=== PATIENT | female | born 1990 | race Caucasian/White ===

== ENCOUNTER 2022-03-17 06:30 | Inpatient (IN) | payer OTHER, SELFPAY ==
[2022-03-17] VITALS (38 sets, daily range): BP systolic 104–156; BP diastolic 54–84; PULSE 57–89; TEMP 36.1–37.1; O2SAT 79–100; BMI 27.0
[2022-03-17 06:29] LABS: ROM Internal Control Test YES-OK TO RESULT pt. (Internal QC)
[2022-03-17 06:30] LABS: ROM Patient Test POSITIVE (Negative)
--- NOTE | 2022-03-17 06:51 | HP.PCM.OB_ITS ---
HPI - General General Date of Admission: 03/17/22 HPI Narrative TASHA GOULD, is a 31 F who presents at 40w5d for leakage of fluid at 0230 this am. Contractions irregular. No vaginal bleeding. Good movement. uncomplicated. Maternal Data Information RODO Calculator Estimated Delivery Date Method Current WG Current Estimate 03/12/22 Manual 40w 5d PFSH PFSH Home Medications [id number] [] 1 tab PO DAILY 03/17/22 [History Last Taken 03/16/22 08:00] Allergy/AdvReac Type Severity Reaction Status Date / Time chlorhexidine Allergy Rash Verified 03/17/22 06:41 NST FHR Rate Baby A Baseline: 130 Variability:: Moderate Accelerations:: 15 x 15 Decelerations:: None FHR Category:: Category I Uterine Activity:: Irregular, mild ROS Constitutional Constitutional: Reports systems reviewed and no addt'l complaints, except as documented; Denies headache(s) Eyes Eyes: Denies acute decrease in peripheral vision, blurry vision or change in vision ENT HEENT: Reports systems reviewed and no addt'l complaints, except as documented Cardiovascular Cardiovascular: Denies chest pain or dizziness Respiratory/Chest Respiratory/Chest: Denies cough, dyspnea, dyspnea on exertion, shortness of breath at rest or shortness of breath with exertion Gastrointestinal Gastrointestinal: Denies abdominal pain, diarrhea, nausea or vomiting Genitourinary Genitourinary: Denies abdominal discomfort or movement Musculoskeletal Musculoskeletal: Denies limited range of motion Integumentary Integumentary: Reports systems reviewed and no addt'l complaints, except as documented Neurologic Neurologic: Reports systems reviewed and no addt'l complaints, except as documented Psychiatric Psychiatric: Reports systems reviewed and no addt'l complaints, except as documented Endocrine Endocrinology: Reports systems reviewed and no addt'l complaints, except as documented Hematologic/Lymphatic Hematologic/Lymphatic: Reports systems reviewed and no addt'l complaints, except as documented Allergic/Immunologic Allergic/Immunologic: Reports systems reviewed and no addt'l complaints, except as documented Vital Signs Vital Signs Vital Signs: 03/17/22 05:53 Temperature 97.8 F Temperature Source Temporal Pulse Rate 82 Blood Pressure 113/82 H BP Systolic 113 BP Diastolic 82 Pulse Ox 97 Weight Weight: 178 lb Body Mass Index (BMI) 27.0 Physical Exam Const alert and oriented x3 General Appearance: cooperative Orientation / Consciousness: awake, oriented to person, oriented to place and oriented to time Exam Limitations: no limitations HEENT normocephalic Head and Scalp: normal to inspection, normocephalic and atraumatic Face and Sinus: normal facial exam Eyes General Eye: normal appearance of both eyes Neck full ROM Chest Chest: symmetrical chest wall rise Resp normal respiratory effort and normal air movement Auscultation: clear to auscultation bilaterally Cardio regular rate, regular rhythm, S1 normal heart sound, S2 normal heart sound, no murmurs, no rub, no gallops and no clicks GI normal to inspection, nondistended, normoactive bowel sounds and non-tender appearance of the vagina normal Bladder / Kidney Exam: no CVA tenderness Manual OB Exam: estimated gestational size appropriate (approximately 7lb EFW) a nd dilated 1cm per nursing staff and vertex Back/Spine normal ROM Extremity normal to inspection and full ROM Skin no rashes or lesions noted Neuro oriented x3, CN's II-XII intact bilaterally and moves all extremities Sensorium / Orientation: awake, alert and oriented to person Motor Exam: clonus absent Deep Tendon Reflexes: Rt Patellar (L4): 2+ and Lt Patellar (L4): 2+ Labs Labs Labs: No Data to Display RPR negative Rubella Immune HBsAG negative HIV negative Hep C negative AB positive, antibody screen negative GC/CT negative GBS negative Assessment & Plan (1) Post-dates : (2) 40 weeks gestation of : (3) PROM (premature rupture of membranes): PLAN: 1) Admit to Labor and delivery 2) ROM plus positive. Reviewed active vs. expectant management r/b/a and patient would like expectant management at this time. 3) Routine labs 4) Intermittent EFM 5) Saline lock and PO hydration 6) Would like hydrotherapy for pain management. Epidural upon request 7) GBS negative 8) oncoming physician and updated on patient admission and status.
[2022-03-17 07:11] LABS: Absolute Neutrophil Count 8.1 X10^3/uL (2.0-7.7); Basophil# 0.02 X10^3/uL; Basophil% 0.2 % (0-1); Eosinophil# 0.02 X10^3/uL; Eosinophils% 0.2 % (0-5); Hematocrit 35.2 % (37-47); Lymphocyte % 17.4 % (19-41); Mean Corp Hgb Conc 34.1 g/dL (32-36); Mean Corpuscular Hgb 30.7 pg (27.0-32.0); Mean Platelet Vol. 12.3 fl (6.2-12.0); Monocyte# 0.87 X10^3/uL; NRBC Flagged by Analyzer 0 % (0-5); Neutrophil # 8.05 X10^3/uL (2.7-7.7); Neutrophil % 73.8 % (47-70); POSITIVE COUNT YES; RBC Distribution Width CV 11.9 % (11.6-14.6); RBC Distribution Width SD 38.5 fl (35.1-43.9); Red Blood Count 3.91 M/mm3 (4.2-5.4); White Blood Count 10.9 K/mm3 (4.4-11.0)
[2022-03-17] MEDS: Lactated Ringers 1,000 ML 50 ML IV ×2 (07:30→11:44)
[2022-03-17 07:48] LABS: Platelet Estimate ADEQUATE (ADEQ)
[2022-03-17] MEDS: Oxytocin 30 units/NS 500 ml 30 UNITS/500 ML IV.SOLN IV (09:42)
--- NOTE | 2022-03-17 10:12 | PCM.PN.BLA ---
Progress Note Patient seen at bedside. Vaginal exam performed 1./-2, 4 bag noted. That was ruptured and moderate amount of clear fluid was expelled. Pitocin started..
[2022-03-17] MEDS: Lactated Ringers 500 ML 999 ML IV (12:25)
[2022-03-17] MEDS: fentaNYL-bupivacaine (epidural) 100 ML BAG EPIDURAL ×3 (12:54→22:01)
[2022-03-17] MEDS: Lactated Ringers 1,000 ML 200 ML IV ×3 (14:23→21:34)
[2022-03-17] MEDS: Amnioinfusion- 0.9% NS 1,000 ML IV.SOLN. 1000 ML INTRA-UTER (17:03)
[2022-03-17] MEDS: Amnioinfusion- 0.9% NS 1,000 ML IV.SOLN. 150 ML INTRA-UTER (21:31)
[2022-03-18] VITALS (34 sets, daily range): BP systolic 107–137; BP diastolic 63–84; PULSE 59–105; RESP 16–18; TEMP 36.2–37.2; O2SAT 95–98
[2022-03-18] MEDS: Lactated Ringers 1,000 ML 200 ML IV (02:35)
[2022-03-18] MEDS: fentaNYL-bupivacaine (epidural) 100 ML BAG EPIDURAL (03:03)
[2022-03-18] MEDS: Amnioinfusion- 0.9% NS 1,000 ML IV.SOLN. INTRA-UTER (04:16)
--- NOTE | 2022-03-18 06:18 | PCM.PN.BLA ---
Progress Note Patient is pushing but unable to feel any pressure due to dense epidural. Discussed turning the epidural down. head at a +2 station. Continue Pitocin at this time.
[2022-03-18] MEDS: Oxytocin 30 units/NS 500 ml 30 UNITS/500 ML IV.SOLN 334 UNITS IV (07:30)
--- NOTE | 2022-03-18 07:40 | EX.PCM.OBRPT ---
Assessment & Plan (1) Vaginal delivery: (2) Obstetrical laceration, second degree: Maternal Data Information RODO Calculator Estimated Delivery Date Method Current WG Current Estimate 03/12/22 Manual 40w 6d Vaginal Delivery Maternal Presentation Maternal Presentation: Spontaneous Rupture of Membranes Maternal Presentation: early labor with SROM- pitocin started for induction Operative Information Date of Procedure: 03/18/22 Pre-Operative Diagnosis: 40 weeks gestation, SROM Post-Operative Diagnosis: same, live male Surgery / Procedure Performed: Spontaneous Vaginal Delivery Type of Anesthesia: Epidural Drain: Dhillon to straight drain Estimated Blood Loss: 300 Time of Delivery: 07:24 Findings Description of Procedure: Patient progressed to fully dilated. Good maternal pushing efforts delivered the 's head. Gentle downward traction to deliver the anterior shoulder followed by the rest the infant's body. The infant was placed on the mother's chest. Was vigorous at . Delayed cord clamping performed. Pitocin was started placenta delivered spontaneously without difficulty. Placenta was intact. Second-degree vaginal laceration was appreciated. This was repaired with 2-0 Vicryl and 3-0 repeat suture. Excellent hemostasis was appreciated no complications. Presentation: Vertex Amniotic Membrane Rupture Type: Spontaneous Amniotic Fluid Description: Clear Placental Delivery Description: Spontaneous Placenta Disposition: [facility] Specimen(s) Removed: placenta Cord Vessel Description: 3 Vessels Cord Entanglement: None Infant A Gender: Male (1 minute): 8 (5 minute): 9 Delayed Cord Clamping: Yes Post Vaginal Delivery Medications Given After Delivery: IV Pitocin Episiotomy Description: None Laceration: Vaginal Extension/lac and 2nd degree Complication Complications: None
[2022-03-18] MEDS: Naproxen 500 MG Tablet PO ×2 (10:09→18:52)
[2022-03-18] MEDS: Senna/Docusate Sodium 1 Tablet PO (10:09)
[2022-03-18] MEDS: Acetaminophen 500 MG Tablet 1000 MG PO (16:35)
[2022-03-19 00:20] VITALS: BP 123/72; PULSE 78; RESP 16; TEMP 36.7; O2SAT 95
[2022-03-19] MEDS: Acetaminophen 500 MG Tablet 1000 MG PO ×3 (00:25→20:39)
[2022-03-19 03:50] VITALS: BP 112/63; PULSE 64; RESP 16; TEMP 36.4; O2SAT 97
[2022-03-19] MEDS: Naproxen 500 MG Tablet PO ×3 (06:04→23:38)
[2022-03-19 08:05] VITALS: BP 126/83; PULSE 70; RESP 16; TEMP 36.6; O2SAT 96
[2022-03-19] MEDS: Benzocaine/Lanolin/Aloe Vera 1 SPRAY EACH TOPICAL (08:15)
[2022-03-19] MEDS: Senna/Docusate Sodium 1 Tablet PO (08:16)
--- NOTE | 2022-03-19 09:50 | PCM.PN.OB ---
Subjective Subjective Patient seen at bedside. . Ambulating and voiding without difficulty. Lochia decreasing. Desires discharge later today. Objective Data Objective Data Vital Signs: Vital Signs Temp Pulse Resp BP Pulse Ox 97.6 F L 64 16 112/63 97 03/19/22 03:50 03/19/22 03:50 03/19/22 03:50 03/19/22 03:50 03/19/22 03:50 Oxygen Delivery Method Room Air Weight: 178 lb Body Mass Index (BMI) 27.0 Intake & Output: Intake and Output for Last 24 Hours 03/17/22 03/18/22 03/19/22 23:59 23:59 23:59 Intake Total 3718.28 / 3718.28 2491.42 / 2491.42 Output Total 2400 / 2400 2550 / 2550 Balance 1318.28 / 1318.28 -58.58 / -58.58 Lab / Micro Data Result Diagrams: 03/17/22 06:50 Micro: Microbiology 03/17/22 07:00 Nasal Secretion SARS-CoV-2 Antigen (Rapid) - Final ROS Eyes Eyes: Denies blurry vision, change in vision or spots in vision ENT HEENT: Denies dizziness or headache(s) Cardiovascular Cardiovascular: Denies abdominal pain, chest pain or dyspnea Respiratory/Chest Respiratory/Chest: Denies cough, dyspnea, shortness of breath at rest or shortness of breath with exertion Gastrointestinal Gastrointestinal: Denies abdominal pain, diarrhea or vomiting Genitourinary Genitourinary: Denies change in urinary stream, difficulty urinating or dysuria Musculoskeletal Musculoskeletal: Reports none Integumentary Integumentary: Denies rash Neurologic Neurologic: Denies dizziness, headache(s), memory loss or weakness Physical Exam Const alert and no apparent distress General Appearance: cooperative and comfortable Exam Limitations: no limitations HEENT normocephalic Eyes General Eye: normal appearance of both eyes Neck full ROM General: normal visual inspection Chest Chest: symmetrical chest wall rise Resp normal respiratory effort and normal air movement Effort and Inspection: symmetric chest movement Auscultation: clear to auscultation bilaterally Cardio regular rate and regular rhythm GI normal to inspection, nondistended, normoactive bowel sounds Back/Spine normal ROM Extremity full ROM and no calf tenderness General Extremity: normal exam except as noted Skin no rashes or lesions noted Neuro CN's II-XII intact bilaterally Psych mental status grossly normal Assessment & Plan (1) Obstetrical laceration, second degree: (2) Vaginal delivery: (3) Mother currently breast-feeding: PLAN: PPD 1 Routine care support D/C home with follow up in office
--- NOTE | 2022-03-19 09:53 | PCM.DC ---
Discharge Instructions Diet Discharge Diet: No restrictions Activity May resume sexual activity in: 6-8 weeks Weight Bearing Status: Weight bearing as tolerated Dressing / Incision Call your doctor if you observe: Fever of 101 or Higher, Inability to urinate, Using more than 1 pad per hour, Shortness of breath, Chest pain, Calf discomfort and Uncontrolled pain Follow Up Care When: 2 weeks virtual visit/ 6 weeks in office Test Results: Test results from this visit will be discussed in further detail at your follow-up appointment, if applicable. Discharge Plan Admission Admit Date/Time: 03/17/22 06:30 Primary Reason for Your Visit: Labor and delivery Attending Provider: Anahy Cisneros Primary Care Provider: Kena Costa Discharge Orders/Prescriptions Prescriptions: New Dermoplast (with menthol) 20-0.5 % Aerosol 1 spray topical TID PRN PRN (Reason: perineal discomfort) Qty: 0 RF: 0 acetaminophen 500 mg Tablet 1,000 mg PO Q6H PRN PRN (Reason: Pain 1-10 Or Fever) Qty: 0 RF: 0 naproxen 500 mg Tablet 500 mg PO Q8H PRN PRN (Reason: Pain Score 1-3) Qty: 0 RF: 0 No Action 1 mg Tablet 1 tab PO DAILY RF: 0 Referrals / Follow Up: Kena Costa MD [Primary Care Provider] - Disposition Disposition (needs filled in before D/C Order can be placed): Home, Self Care
[2022-03-19 15:39] VITALS: BP 117/77; PULSE 66; RESP 16; TEMP 36.7; O2SAT 97
[2022-03-19 20:05] VITALS: BP 123/70; PULSE 72; RESP 18; TEMP 36.7; O2SAT 99
[2022-03-20 03:06] VITALS: BP 114/70; PULSE 72; RESP 16; TEMP 37.2; O2SAT 96
[2022-03-20] MEDS: Acetaminophen 500 MG Tablet 1000 MG PO (03:17)
--- NOTE | 2022-03-20 08:41 | PCM.PN.OB ---
Subjective Subjective Patient seen at bedside. Sitting in rocking chair . Decided to stay last night and go home today. Ambulating and voiding without difficulty. Lochia decreased. Objective Data Objective Data Vital Signs: Vital Signs Temp Pulse Resp BP Pulse Ox 99.0 F 72 16 114/70 96 03/20/22 03:06 03/20/22 03:06 03/20/22 03:06 03/20/22 03:06 03/20/22 03:06 Oxygen Delivery Method Room Air Weight: 178 lb Body Mass Index (BMI) 27.0 Intake & Output: Intake and Output for Last 24 Hours 03/18/22 03/19/22 03/20/22 23:59 23:59 23:59 Intake Total 2491.42 / 2491.42 Output Total 2550 / 2550 Balance -58.58 / -58.58 Lab / Micro Data Result Diagrams: 03/17/22 06:50 Micro: Microbiology 03/17/22 07:00 Nasal Secretion SARS-CoV-2 Antigen (Rapid) - Final ROS Eyes Eyes: Denies blurry vision, change in vision or spots in vision ENT HEENT: Denies dizziness or headache(s) Cardiovascular Cardiovascular: Denies abdominal pain, chest pain or dyspnea Respiratory/Chest Respiratory/Chest: Denies cough, dyspnea, shortness of breath at rest or shortness of breath with exertion Gastrointestinal Gastrointestinal: Denies abdominal pain, diarrhea or vomiting Genitourinary Genitourinary: Denies change in urinary stream, difficulty urinating or dysuria Musculoskeletal Musculoskeletal: Reports none Integumentary Integumentary: Denies rash Neurologic Neurologic: Denies dizziness, headache(s), memory loss or weakness Physical Exam Const alert and no apparent distress General Appearance: cooperative and comfortable Exam Limitations: no limitations HEENT normocephalic Eyes General Eye: normal appearance of both eyes Neck full ROM General: normal visual inspection Chest Chest: symmetrical chest wall rise Resp normal respiratory effort and normal air movement Effort and Inspection: symmetric chest movement Auscultation: clear to auscultation bilaterally Cardio regular rate and regular rhythm GI normal to inspection, nondistended, normoactive bowel sounds Back/Spine normal ROM Extremity full ROM and no calf tenderness General Extremity: normal exam except as noted Skin no rashes or lesions noted Neuro CN's II-XII intact bilaterally Psych mental status grossly normal Assessment & Plan (1) Obstetrical laceration, second degree: (2) Mother currently breast-feeding: (3) Vaginal delivery: PLAN: PPD 2 Routine care support D/C home with follow up in office
[2022-03-20 09:15] VITALS: BP 112/66; PULSE 80; RESP 16; TEMP 36.7; O2SAT 96
[2022-03-20] MEDS: Naproxen 500 MG Tablet PO (09:57)
[2022-03-20 14:00] VITALS: BP 126/78; RESP 16; TEMP 37.1; O2SAT 98
== END 2022-03-20 14:17 | disposition home or self-care (01) | DRG 807 ==
LOC: WPOUT 06:36 → WP 06:36
PROVIDERS: Advanced Practice Midwife; Admitting Provider Obstetrics & Gynecology; PCP Internal Medicine; Visit Provider Obstetrics & Gynecology
DX: O48.0 Post-term pregnancy (principal); Z37.0 Single live birth; O42.92 Full-term premature rupture of membranes, unspecified as to length of time between rupture and onset of labor; O70.1 Second degree perineal laceration during delivery; Z3A.40 40 weeks gestation of pregnancy
CPT/HCPCS: 59025; 59050; 84112; 85025; 86850; 86900; 86901; 87811; 99218; J7030; J7120; G0378

== ENCOUNTER → 2022-12-23 | Outpatient (CLI) | payer OTHER, SELFPAY ==
[2022-12-23 15:19] LABS: Absolute Lymphocyte Count 1.13 X10^3/uL (0.83-4.51); Absolute Neutrophil Count 6.5 X10^3/uL (2.0-7.7); Basophil# 0.02 X10^3/uL; Basophil% 0.2 % (0-1); Eosinophil# 0.03 X10^3/uL; Eosinophils% 0.4 % (0-5); Hematocrit 38.9 % (37-47); Hemoglobin 12.9 g/dL (12.0-15.0); Lymphocyte # 1.13 X10^3/ul (0.83-4.51); Lymphocyte % 13.3 % (19-41); Mean Corp Hgb Conc 33.2 g/dL (32-36); Mean Corpuscular Hgb 29.9 pg (27.0-32.0); Mean Platelet Vol. 10.4 fl (6.2-12.0); Monocyte# 0.77 X10^3/uL; Monocyte% 9.1 % (0-10); NRBC Flagged by Analyzer 0 % (0-5); Neutrophil # 6.51 X10^3/uL (2.7-7.7); Neutrophil % 76.6 % (47-70); Platelet Count 355 K/mm3 (150-450); RBC Distribution Width CV 11.8 % (11.6-14.6); RBC Distribution Width SD 38.5 fl (35.1-43.9); Red Blood Count 4.32 M/mm3 (4.2-5.4); White Blood Count 8.5 K/mm3 (4.4-11.0)
[2022-12-23 17:01] LABS: HIV - WCH Non-Reactive (Nonreactive); Hepatitis B Surface Antigen Non-Reactive (Nonreactive); Hepatitis C Antibody Non-Reactive (Nonreactive); Rubella IgG Reactive (Nonreactive); Syphilis Antibodies Non-reactive
[2022-12-26 20:24] LABS: V-Zoster IgG (Immunity) 414 index (Immune >165)
== END | disposition home or self-care (01) ==
PROVIDERS: PCP Internal Medicine; Visit Provider Student in an Organized Health Care Education/Training Program
DX: Z34.81 Encounter for supervision of other normal pregnancy, first trimester (principal)
CPT/HCPCS: 85025; 86703; 86762; 86780; 86787; 86803; 87086; 87088; 87186; 87340